=== PATIENT | male | born 1995 | race Caucasian/White ===

== ENCOUNTER 2021-08-03 06:08 | Emergency (ER) | payer SELFPAY ==
[~2021-08-03] VITALS: Ht 175.3 cm; Wt 81.6 kg
[2021-08-03 06:12] VITALS: BP 168/97
--- NOTE | 2021-08-03 08:00 | NUR ---
PATIENT BIB [facility] POLICE DEPT. PATIENT EXAMINED BY DR. HOPKINS. PATIENT MEDICALLY CLEARED AND RELEASED IN CUSTODY IN STABLE CONDITION. ORIGINAL PRE-BOOK FORM NOT GIVEN TO OFFICER. OFFICER LEFT WITHOUT D/C PAPERWORK AND PRE BOOK FORM
== END 2021-08-03 08:00 ==
LOC: MED 06:08
DX: Z02.89 Encounter for other administrative examinations (principal)
CPT/HCPCS: 99283